=== PATIENT | male | born 2000 | race Caucasian/White ===

== ENCOUNTER → 2024-12-25 09:42 | Outpatient (CLI) | payer OTHER, SELFPAY | LOC: PHYS 09:45 | PROVIDERS: Family Provider Student in an Organized Health Care Education/Training Program; PCP Student in an Organized Health Care Education/Training Program; Referring Provider Student in an Organized Health Care Education/Training Program; Visit Provider Student in an Organized Health Care Education/Training Program | DX: R20.2 Paresthesia of skin (principal) | CPT/HCPCS: 95886; 95909 ==